=== PATIENT | female | born 1970 | race Caucasian/White ===

== ENCOUNTER 2016-03-20 09:42 | Emergency (ER) | payer OTHER ==
[2016-03-20 10:55] VITALS: TEMP 98.5; BMI 30.8
--- NOTE | 2016-03-20 11:48 | EDPRACDOC ---
- General Information Chief Complaint: Fall Stated Complaint: FALL,LT HAND PAIN Time Seen by Provider: 03/20/16 11:35 Information Source: Patient Home Medications: Home Medications Aspirin [Aspirin EC] 81 mg PO DAILY 03/20/16 Hydrocodone Bit/Acetaminophen [Hydrocodon-Acetaminophen 5-325] 1 tab PO Q6 PRN # 20 tab 03/20/16 Allergies/Adverse Reactions: Allergies Allergy/AdvReac Type Severity Reaction Status Date / Time codeine Allergy Rash-Genera Verified 03/20/16 11:29 lized - History of Present Illness Onset: 5 DAYS HPI: PT STATES THAT SHE SLIPPED ON ICE WEDNESDAY NIGHT, FELL ONTO LEFT SIDE, COMPLAINS OF PAIN, BRUISING AND SWELLING TO LEFT HAND AND WRIST, NO NECK OR BACK PAIN. USING ICE, CINDY WRAP AND IBUPROFEN WITHOUT RELIEF. Location: Reports: Dorsal, Ulnar, Radial Dominant Side: Reports: Left Mechanism: Reports: FOOSH Circumstances: Reports: Fall Pain Severity: Reports: Severe Associated Signs and Symptoms: Reports: Hand Pain. 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 Denies: Depression Systemic History: Reports: Hypothyroidism. Denies: Cancer Surgical History: Reports: Cardiac Catheterization, Other (Surgery for endometriosis also hand cardiac catheterization sinusx2.). Denies: Hysterectomy - Family Medical History Reports: Hypertension, Cancer, Stroke, Cardiac Disorders - Social Medical History Smoking Status: Never smoker ETOH: None Substance Abuse: None EDM Review of Systems - Review of Systems Neurological: negative: Dizziness, Numbness, Weakness Musculoskeletal: Hand, Wrist Integumentary: Bruising - Physical Exam Constitutional: Alert (Awake), No apparent distress Oriented to: Time, Person, Place Last recorded Vital Signs: Last Vital Signs Temp 98.5 F 03/20/16 10:51 Pulse 81 03/20/16 10:51 Resp 16 03/20/16 10:51 BP 153/85 03/20/16 10:51 Pulse Ox 96 03/20/16 10:51 Oxygen Pulse Oxygen Saturation 96 O2 Device Room Air Oxygen Flow Rate Fraction of Inspired Oxygen ( FIO2) - HEENT Head: Normal ( normocephalic) - Integumentary Skin: Warm, Dry - Neurologic Memory Impaired: Normal Motor Function: Normal (Normal tone, Pulses 2+ No cyanosis or edema, FROM) Cranial Nerve: Normal (CN II-X11 intact sensation, strength 5/5) Cerebellar: Normal Mood Description: Normal Perception: Normal ED Wrist Problem Exam Wrist Symptoms: Swelling, Limited ROM, Moderate Tenderness. negative: Deformity Hand Symptoms: Swelling, Limited ROM, Moderate Tenderness Forearm Symptoms: Normal. negative: Swelling, Deformity Distal Function/Circulation: Normal, Capillary Refill. negative: Motor Deficit , Pulse Deficit, Sensory Deficit - Integumentary Skin: Ecchymosis (LARGE AREA OF ECCHYMOSIS NOTED TO DORSUM OF LEFT HAND AND WRIST) ED Wrist Problem MDM - Differential Diagnosis Differential Diagnosis: Fracture-Carpal, Fracture-Radius/Ulna - Diagnostic Imaging LEFT HAND/WRIST Image interpreted by: Radiologist Diagnostic Imaging Comments: LEFT HAND - COMPLETE 3+ VIEW; LEFT WRIST - COMPLETE 3+ VIEW COMPARISON: None. FINDINGS: Left hand: Advanced degenerative changes at the carpometacarpal joint of the thumb. No acute hand fracture is identified. Left wrist: The joint spaces are maintained. Advanced degenerative changes at the carpometacarpal joint of the thumb. No acute wrist fracture. IMPRESSION: No acute fracture. Decision Time to Discharge: 12:09 - Departure Disposition: Home Condition: Stable Final Diagnosis: Accidental fall Left wrist sprain Qualifiers: Encounter type: initial encounter Qualified Code(s): S63.502A - Unspecified sprain of left wrist, initial encounter Contusion of left hand Qualifiers: Encounter type: initial encounter Qualified Code(s): S60.222A - Contusion of left hand, initial encounter Instructions: RICE: Routine Care for Injuries Education/Counseling Given To: Patient Education/Counseling Given Regarding: Diagnosis, Treatment, Prognosis, Follow Up Referrals: José Antonio Harper PA [Primary Care Provider] - One Week Prescriptions: Hydrocodone Bit/Acetaminophen [Hydrocodon-Acetaminophen 5-325] 1 tab PO Q6 PRN # 20 tab PRN Reason: Pain Forms: Excuse Note Additional Instructions: WEAR SPLINT, ELEVATE YOUR HAND AND APPLY WARM COMPRESSES NEEDED FOR PAIN AND SWELLING.
[2016-03-20] MEDS ORDERED: HYDROCODONE 5 MG/ACETAMIN 325 MG TAB PO ONE (11:49)
--- NOTE | 2016-03-20 12:00 | DIRPT ---
CLINICAL DATA: Fell on ice 5 days ago. Persistent wrist and hand pain. EXAM: LEFT HAND - COMPLETE 3+ VIEW; LEFT WRIST - COMPLETE 3+ VIEW COMPARISON: None. FINDINGS: Left hand: Advanced degenerative changes at the carpometacarpal joint of the thumb. No acute hand fracture is identified. Left wrist: The joint spaces are maintained. Advanced degenerative changes at the carpometacarpal joint of the thumb. No acute wrist fracture. IMPRESSION: No acute fracture. Electronically Signed By: Denita Curiel M.D. On: 03/20/2016 11:58
[2016-03-20 12:30] VITALS: BP 136/78; PULSE 82
== END 2016-03-20 12:29 | disposition home or self-care (01) ==
LOC: EDMC 09:42
DX: S63.502A Unspecified sprain of left wrist, initial encounter (principal); W01.0XXA Fall on same level from slipping, tripping and stumbling without subsequent striking against object, initial encounter; Y93.29 Activity, other involving ice and snow
CPT/HCPCS: 73110; 73130; 80307; 99282; J3490